=== PATIENT | male | born 2000 | race Caucasian/White ===

== ENCOUNTER 2019-11-29 19:26 | Emergency (ER) | payer OTHER ==
[~2019-11-29] VITALS: Ht 172.7 cm; Wt 60.8 kg
[2019-11-29 19:30] VITALS: Ht 172.7 cm; Wt 60.8 kg
[2019-11-30 01:30] VITALS: BP 106/63
== END 2019-11-30 01:30 | disposition home or self-care (01) ==
LOC: ED 19:26
DX: J98.2 Interstitial emphysema (principal); T78.1XXA Other adverse food reactions, not elsewhere classified, initial encounter; J45.909 Unspecified asthma, uncomplicated; X58.XXXA Exposure to other specified factors, initial encounter
CPT/HCPCS: J1200; J2930; J3490; Q0092